=== PATIENT | male | born 1970 | race Caucasian/White ===

== ENCOUNTER 2018-07-14 23:27 | Emergency (ER) | payer OTHER, BC ==
[2018-07-14 23:37] VITALS: BP 102/66; PULSE 78; TEMP 98; BMI 27.1
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
== END 2018-07-15 01:25 | disposition home or self-care (01) ==
LOC: JER 23:27
DX: S13.4XXA Sprain of ligaments of cervical spine, initial encounter (principal); S16.1XXA Strain of muscle, fascia and tendon at neck level, initial encounter; V49.49XA Driver injured in collision with other motor vehicles in traffic accident, initial encounter; Y92.414 Local residential or business street as the place of occurrence of the external cause; Y99.0 Civilian activity done for income or pay; Y93.89 Activity, other specified; E11.9 Type 2 diabetes mellitus without complications; Z79.4 Long term (current) use of insulin
CPT/HCPCS: 72050-TC-FY; 99281-25

== ENCOUNTER 2020-10-19 15:02 | Emergency (ER) | payer BC ==
[2020-10-19 15:17] VITALS: BP 134/65; PULSE 74; TEMP 98.1; BMI 30.5
== END 2020-10-19 16:58 | disposition home or self-care (01) ==
LOC: JER 15:02
DX: U07.1 COVID-19 (principal)
CPT/HCPCS: 99283-25